=== PATIENT | female | born 1955 | race Caucasian/White ===

== ENCOUNTER 2024-12-23 07:26 | Day surgery (SDC) | payer MEDICARE, OTHER ==
[2024-12-18 09:46] VITALS: BMI 27.4
[2024-12-23] MEDS ORDERED: AFRIN NASAL MIST 15 ML BOT ONE (08:12)
[2024-12-23] MEDS ORDERED: PROPOFOL 20 ML ONE (09:07)
[2024-12-23] MEDS ORDERED: Ketorolac Tromethamine 30 MG (1 mL) VIAL ONE (09:08)
[2024-12-23] MEDS ORDERED: Lidocaine 4% PF 5 ML AMP ONE (09:08)
[2024-12-23] MEDS ORDERED: Bacitracin 1 PK ONE (09:08)
[2024-12-23] MEDS ORDERED: Lidocaine 1% w/Epinephrine 1:200K 30 ML VIAL ONE (09:09)
[2024-12-23] MEDS ORDERED: Ondansetron PF 4 MG/2 ML Vial ONE ×2 (09:46→12:29)
[2024-12-23] MEDS ORDERED: Oxymetazoline HCl 0.05% (15 ML) ONE (09:55)
[2024-12-23] MEDS ORDERED: HYDROcodone/Acetaminophen 5/325 mg Tablet ONE (13:24)
== END 2024-12-23 14:00 | disposition home or self-care (01) ==
LOC: CSHSDC 07:26
PROVIDERS: ATTEND Otolaryngology Plastic Surgery within the Head & Neck
PROC: 09BV8ZZ Excision of Left Ethmoid Sinus, Via Natural or Artificial Opening Endoscopic (ICD-10-PCS; principal; 2024-12-23)
PROC: 09BU8ZZ Excision of Right Ethmoid Sinus, Via Natural or Artificial Opening Endoscopic (ICD-10-PCS; 2024-12-23)
DX: J32.9 Chronic sinusitis, unspecified (principal); J34.2 Deviated nasal septum; J34.3 Hypertrophy of nasal turbinates; J34.89 Other specified disorders of nose and nasal sinuses; H81.01 Meniere's disease, right ear; H90.A21 Sensorineural hearing loss, unilateral, right ear, with restricted hearing on the contralateral side
CPT/HCPCS: 30140; 30520; 31240; 31255; 31256; 61782; J1010; J1100; J1885; J2405; J2704; J3010